=== PATIENT | female | born 1955 | race Caucasian/White ===

== ENCOUNTER → 2016-03-17 | Outpatient (CLI) | payer BC ==
--- NOTE | 2016-03-17 08:28 | DIAGNOSTIC IMAGING REPORT ---
(BARIUM SWALLOW) ESOPHAGUS CLINICAL HISTORY: Dysphagia. COMPARISON STUDY: None FLUOROSCOPY TIME: 1 minute. FINDINGS: 28 fluoroscopic images were obtained. Esophageal motility was normal. No esophageal mass or stricture was identified. No reflux was elicited. No hiatal hernia was identified. Note was made of a small outpouching at the level the hypopharynx, just proximal to the upper esophageal sphincter consistent with a small Zenker diverticulum. There is prominence of the cricopharyngeus with only minimal narrowing of the upper esophagus. IMPRESSION: 1. Small Zenker diverticulum. Mild prominence of the cricopharyngeus. 2. Otherwise, unremarkable barium swallow. Electronically signed by: Jeramy Carmen M.D. 03/17/2016 8:26 AM Dictated Date/Time: 03/17/2016 8:24 AM
== END | disposition home or self-care (01) ==
LOC: C.RAD 07:46
PROVIDERS: ATTEND Family Medicine
DX: R13.10 Dysphagia, unspecified (principal); K22.5 Diverticulum of esophagus, acquired